=== PATIENT | female | born 1960 | race Caucasian/White ===

== ENCOUNTER 2023-03-31 10:28 | Day surgery (SDC) | payer MEDICAID, SELFPAY ==
--- NOTE | 2023-03-31 10:39 | W.ANESPRE ---
General Info Date of Service Date Performed: 03/31/23 Height: 6 ft 0.75 in Weight: 95.254 kg Body Mass Index (BMI): 27.8 Surgical Procedure: Operation Date: 03/31/23 12:10 Proposed Procedure Side Surgeon p Cataract Extraction with IOL Implant Left Cuba Humphrey MD Meds Allergies and Home Medications Allergies Allergy/AdvReac Type Severity Reaction Status Date / Time insect venom Allergy Edema Unverified 03/31/23 11:08 pollen extracts Allergy Other (See Unverified 03/31/23 11:08 Comment) tree and shrub pollen Allergy Other (See Unverified 03/31/23 11:08 Comment) tramadol AdvReac Intermediate Other (See Unverified 03/31/23 11:08 Comment) Home Medication Medication Instructions Recorded albuterol sulfate 90 mcg/actuation 2 puff inhalation Q4H PRN 03/28/23 aerosol inhaler (ProAir HFA) amlodipine 10 mg tablet 10 mg PO DAILY 03/28/23 aspirin 81 mg capsule,delayed 81 mg PO DAILY 03/28/23 release atorvastatin 40 mg tablet 40 mg PO DAILY 03/28/23 dulaglutide 0.75 mg/0.5 mL 0.75 mg subcut DIRECTED 03/28/23 subcutaneous pen injector (Trulicity) epinephrine 0.3 mg/0.3 mL 0.3 mg IM DIRECTED 03/28/23 injection, auto-injector fluticasone 250 mcg-salmeterol 50 1 inh inhalation BID 03/28/23 mcg/dose blistr powdr for inhalation (Advair Diskus) insulin glargine 100 unit/mL (3 15 unit subcut HS 03/28/23 mL) subcutaneous pen (Lantus Solostar U-100 Insulin) lisinopril 20 1 tab PO DAILY 03/28/23 mg-hydrochlorothiazide 12.5 mg tablet metformin 1,000 mg tablet 1,000 mg PO BID 03/28/23 montelukast 10 mg tablet 10 mg PO DAILY 03/28/23 trazodone 50 mg tablet 50 mg PO HS 03/28/23 PFSH Active Problems Active Problems: Problem Status Onset Code Cortical age-related cataract, left eye H25.012 Nuclear age-related cataract, left eye H25.12 Medical History Medical History (Updated 03/31/23 @ 11:07 by Allison Whipple) Asthma Common iliac aneurysm Repaired COPD (chronic obstructive pulmonary disease) Pt. denies this Depression Diabetes mellitus High cholesterol Hypertension L1 vertebral fracture shattered in fall Neuropathy Retinopathy due to secondary diabetes mellitus T10 vertebral fracture Surgical History Surgical History History of back surgery 2 rods and 8 screws in back History of hernia repair History of vascular surgery open common iliac artery aneurysm repair w/ interposition graft Hx of total knee arthroplasty Tobacco Smoking/Tobacco Use Status: Former Tobacco Use Alcohol Alcohol Intake: current Substance Use Substance use type: does not use Vital Signs and Lab Results Lab Results Blood Type / Crossmatch: No Data to Display Complete Blood Count: No Data to Display Complete Metabolic Panel: No Data to Display Liver Function Panel: No Data to Display Coagulation Panel: No Data to Display Cardiac Panel: No Data to Display Arterial Blood Gas: No Data to Display Venous Blood Gas: No Data to Display Pancreas Panel: No Data to Display Thyroid Panel: No Data to Display Infectious Disease: No Data to Display Blood Cultures: No Data to Display Toxicology Panel: No Data to Display Anesthesia Assessment and Plan Anesthesia History Personal History: No History of Anesthesia Complications Family History: No Family History of Anesthesia Complications Exercise Tolerance Exercise Tolerance: Metabolic Equivalents>4 Pertinent Negatives Pertinent Negatives: No Symptoms of GERD and No History of CVA/TIA Cardiac & Pulmonary Exam Cardiac Exam: Normal S1/S2 Heart Sounds Pulmonary Exam: Clear Bilateral Breath Sounds Implantable Cardiac Device Does patient have a Pacemaker or an ICD?: No Airway Exam Known Difficult Airway: No Mallampati Class: 2 Mouth Opening: Normal (> 3cm) Thyromental Distance: Greater than 3 cm Neck Range of Motion: Full ROM Neck Circumference: Normal Teeth Condition: Generalized Poor Dentition ASA Classification ASA Score: ASA 3 Emergency Case?: No NPO Status NPO Status: NPO Clears >2 hours, Solids >8 hours Anesthesia Plan Resuscitation Status: Full Code Anesthesia Technique: MAC Anesthesia Airway Planned: Natural Airway Monitors Used: Standard Monitors Preoperative Comments:: Sig PMHx: repaired common iliac aneurysm, potential COPD (patient denies), reports asthma, vertebral trauma from fall with internal fixation. Patient wants to try local no MKO.
[2023-03-31 11:14] VITALS: BP 119/81; PULSE 86; RESP 20; TEMP 36.4; O2SAT 98
[2023-03-31] MEDS: Tropicam./Phenyleph. (1/2.5%) 5 ML BTL OS ×3 (11:14→11:25)
[2023-03-31 11:26] VITALS: BMI 27.8
[2023-03-31] MEDS: Tetracaine 0.5% 4 ML BTL OS (11:54)
[2023-03-31] MEDS: Povidone-Iodine Ophth 30 ML BTL (11:55)
[2023-03-31] MEDS: Balanced Salt Soln.-PLUS 500 ML BAG OP (12:00)
[2023-03-31] MEDS: Duovisc Viscoelastic System EACH 1 EACH (12:00)
[2023-03-31] MEDS: Lidocaine 1% Pres-Free 5 ML VIAL (12:01)
[2023-03-31] MEDS: Phenylephrine/Lidocaine (15/10) MG/ML 1 ML VIAL (12:02)
[2023-03-31 12:20] VITALS: BP 114/91; PULSE 83; RESP 18; TEMP 36.4; O2SAT 98
--- NOTE | 2023-03-31 12:21 | W.PM.DSUDISC ---
Date of service: 03/31/23 Time of Service: 12:21 Discharge Plan Disposition Patient Disposition: Home Discharge Details Attending Provider: Cuba Humphrey Primary Care Provider: LEANA PATRICIA Home Meds and New Rx's Prescriptions: No Action atorvastatin 40 mg Tablet 40 mg PO HS fluticasone propion-salmeterol [Advair Diskus] 250-50 mcg/dose Blister With Device 1 inh INHALATION BID lisinopril-hydrochlorothiazide 20-12.5 mg Tablet 1 tab PO DAILY aspirin 81 mg Capsule,Delayed Release(Dr/Ec) 81 mg PO DAILY amlodipine 10 mg Tablet 10 mg PO DAILY metformin 1,000 mg Tablet 1,000 mg PO BID epinephrine [Epi E-Z Pen] 0.3 mg/0.3 mL Auto-Injector 0.3 mg IM DIRECTED insulin glargine [Lantus Solostar U-100 Insulin] 100 unit/mL (3 mL) Insulin Pen 15 unit SUBCUT HS trazodone 50 mg Tablet 50 mg PO HS montelukast 10 mg Tablet 10 mg PO DAILY albuterol sulfate [ProAir HFA] 90 mcg/actuation Hfa Aerosol Inhaler 2 puff INHALATION Q4H PRN Trulicity 0.75 mg/0.5 mL Pen Injector 0.75 mg SUBCUT DIRECTED Discharge Instructions Stand Alone Forms: Post-op Topical Cataract, Yakelin Sepulveda (DSU) Discharge Orders Discharge Orders: Discharge Order (Routine); Ordered 03/31/23 Ordered By: Cuba Humphrey DS: Diagnosis Discharge Diagnosis (1) Nuclear age-related cataract, left eye: Status: Resolved (2) Cortical age-related cataract, left eye: Status: Resolved
--- NOTE | 2023-03-31 12:22 | ROE_ITS ---
Date of service: 03/31/23 Time of Service: 12:22 Operative Note Operative Note DATE OF PROCEDURE: 03/31/23 PRE-OP DIAGNOSIS: Nuclear/cortical cataract, left eye POST-OP DIAGNOSIS: same PROCEDURE: Cataract extraction using phacoemulsification with intraocular lens implant, left eye SURGEON: Cuba Humphrey ANESTHESIA TYPE: Local By Surgeon and MAC Refer to Anesthesia Record PATHOLOGY: none sent COMPLICATIONS: None Patient was transported to: same day Patient's condition: stable Implants: Naveen and Naveen Tecnis Eyhance DIB00 Indications: Progressive decreased vision due to cataract, left eye Procedure Description: CATARACT SURGERY OPERATIVE REPORT PREOPERATIVE DIAGNOSIS: 1. Nuclear/cortical cataract, left eye POSTOPERATIVE DIAGNOSIS: Same OPERATION: 1. Cataract extraction using phacoemulsification with posterior chamber intraocular lens implant, left eye. IOL: IOL Certified Corporate [employer] Executive/Model: Naveen & Naveen Tecnis Eyhance DIB00 IOL Power: + 13.5 diopters IOL Serial Number: [id number] Optic Diameter: 6.0 mm Haptic/Overall Diameter: 13.0 mm PHACO INFO: JuanBapulurion Vision System with OZil and Active Fluidics Cumulative Dispersed Energy (CDE): 5.96 seconds SURGEON: Cuba Humphrey MD, RANDALL ANESTHESIA: Monitored A [facility] (MAC), with local sub-tenon's anesthetic infiltration COMPLICATIONS: None SPECIMENS: None INDICATIONS FOR PROCEDURE: The patient is a 62-year-old lady with history of diminished visual acuity in her left eye secondary to the development of significant nuclear/cortical cataract. The option of cataract surgery was offered to the patient and she felt she was symptomatic enough that she wished to proceed. See office notes for detailed information. PROCEDURE: The correct surgical eye was identified and marked as the left eye and the pupil was dilated in the preoperative area using mydriatics and cycloplegics. The dilated pupil size was 6.5 mm. The patient elected to proceed without oral sedation. The patient was brought to the operating room where cardiopulmonary monitoring was instituted and surgical time-out was performed, confirming the correct operative eye and IOL power. Topical anesthesia was administered and ophthalmic povidone-iodine 5% was instilled into the conjunctival fornices. The kiya-ocular area was prepped with Betadine 10% solution and draped in the usual sterile fashion for intraocular surgery, including an aperture drape. A Tegaderm transparent film dressing was cut in half and used to cover the lashes and lid margins. Care was taken to sequester the lashes and lid margins under the Tegaderm dressing. A lid speculum was placed between the lids of the operative eye and the Juan LuxOR Revalia operating microscope was maneuvered into position. Ozzie scissors were then used to make a conjunctival buttonhole approximately 6mm posterior to the limbus in the inferonasal quadrant. Blunt dissection was carried out to expose bare sclera, and a blunt-tipped sub-tenon?s anesthesia cannula was introduced and passed posteriorly along the globe where non- preserved plain lidocaine was injected into posterior sub-Tenon?s space. A sideport knife was used to make a paracentesis port superiorly/superior temporally. Intraocular phenylephrine/lidocaine was injected int the anterior chamber.. The anterior chamber was filled with viscoelastic. A keratome knife was used to construct a 2-plane near-clear corneal tunnel extending 2.0mm into clear cornea temporally. A flap was raised on the anterior capsule and capsulorhexis forceps were used to complete a continuous curvilinear capsulorhexis of 5.5 mm. Balanced salt solution was then used to perform cortical cleaving hydrodissection and nuclear hydrodelineation until the lens could be freely rotated within the capsular bag. The lens nucleus was then disassembled and removed within the capsular bag and iris plane using phacoemulsification. Residual cortical material was removed using the 45-degree angled silicone I/A tip with 0.3mm port. The posterior capsule was carefully polished to remove as much residual lens epithelial cells as safely possible. The capsular bag was then inflated and the anterior chamber deepened with viscoelastic. The lens implant described above was inserted into the capsular bag using the Naveen and Naveen Simplicity pre-loaded injector. . A Kuglen hook was used to dial the IOL into position. Residual viscoelastic was then removed first from posterior to the IOL, then from the anterior chamber using the I/A handpiece. The lens implant was noted to center nicely within the capsular bag. The incisions were stromally hydrated, and the anterior chamber was reformed using BSS. Then 0.5cc of moxifloxacin 1.0mg/ml were injected into the capsular bag and anterior chamber. The incisions were checked with a Weck spear and found to be secure. Several drops of ophthalmic povidone-iodine 5% were then applied to the eye followed by two drops of Imprimis combination prednisolone/moxifloxacin/nepafenac solution. The drapes were removed and a clear plastic protective eye shield was placed over the eye. The patient was then returned to Same Day Surgery in stable condition.
--- NOTE | 2023-03-31 12:41 | W.ANESPOSTOP ---
Postoperative Evaluation Date, Time and Location Date Performed: 03/31/23 Time Performed: 12:41 Patient Location: Day Surgery Unit Vital Signs Most Recent Imported Vital Signs: Most Recent Vital Signs Temp Pulse Resp BP Pulse Ox 36.4 C L 83 18 114/91 H 98 03/31/23 12:20 03/31/23 12:20 03/31/23 12:20 03/31/23 12:20 03/31/23 12:20 Pain Score Most Recent Pain Score: Most Recent Pain Score Pain Level 0 03/31/23 12:20 Assessment Mental Status: Awake (Alert & Oriented to Patient Baseline) Airway and Respiratory Function: Patent airway with normal (patient baseline) respiratory exam Cardiovascular Function: Hemodynamically Stable Hydration Status: Adequately Hydrated Nausea & Vomiting: No Nausea or Vomiting Pain: Pt. Denies Any Pain Peripheral Nerve Block: Other (Local by Dr. Humphrey)
== END 2023-03-31 12:35 | disposition home or self-care (01) ==
PROVIDERS: PCP Family Medicine; Visit Provider Ophthalmology
PROC: (CPT 66984; principal; 2023-03-31 12:00)
DX: H25.12 Age-related nuclear cataract, left eye (principal); H25.012 Cortical age-related cataract, left eye
CPT/HCPCS: 66984; V2632

== ENCOUNTER 2023-04-14 06:12 | Day surgery (SDC) | payer MEDICAID, SELFPAY ==
[2023-04-14 06:15] VITALS: BP 120/80; PULSE 70; RESP 16; TEMP 36.5; O2SAT 99
[2023-04-14] MEDS: Tropicam./Phenyleph. (1/2.5%) 5 ML BTL OD ×3 (06:37→06:52)
--- NOTE | 2023-04-14 06:51 | W.ANESPRE ---
General Info Date of Service Date Performed: 04/14/23 Height: 6 ft 0.75 in Weight: 97.3 kg Body Mass Index (BMI): 28.5 Surgical Procedure: Operation Date: 04/14/23 07:40 Proposed Procedure Side Surgeon p Cataract Extraction with IOL Implant Right Cbua Humphrey MD Meds Allergies and Home Medications Allergies Allergy/AdvReac Type Severity Reaction Status Date / Time insect venom Allergy Edema Unverified 04/14/23 06:17 pollen extracts Allergy Other (See Unverified 04/14/23 06:17 Comment) tree and shrub pollen Allergy Other (See Unverified 04/14/23 06:17 Comment) tramadol AdvReac Intermediate Other (See Unverified 04/14/23 06:17 Comment) Home Medication Medication Instructions Recorded albuterol sulfate 90 mcg/actuation 2 puff inhalation Q4H PRN 03/28/23 aerosol inhaler (ProAir HFA) amlodipine 10 mg tablet 10 mg PO DAILY 03/28/23 aspirin 81 mg capsule,delayed 81 mg PO DAILY 03/28/23 release atorvastatin 40 mg tablet 40 mg PO HS 03/28/23 dulaglutide 0.75 mg/0.5 mL 0.75 mg subcut DIRECTED 03/28/23 subcutaneous pen injector (Trulicity) epinephrine 0.3 mg/0.3 mL 0.3 mg IM DIRECTED 03/28/23 injection, auto-injector fluticasone 250 mcg-salmeterol 50 1 inh inhalation BID 03/28/23 mcg/dose blistr powdr for inhalation (Advair Diskus) insulin glargine 100 unit/mL (3 15 unit subcut HS 03/28/23 mL) subcutaneous pen (Lantus Solostar U-100 Insulin) lisinopril 20 1 tab PO DAILY 03/28/23 mg-hydrochlorothiazide 12.5 mg tablet metformin 1,000 mg tablet 1,000 mg PO BID 03/28/23 montelukast 10 mg tablet 10 mg PO DAILY 03/28/23 trazodone 50 mg tablet 50 mg PO HS 03/28/23 Current Visit Medications: Current Medications Generic Name Dose Route Start Last Admin Trade Name Freq PRN Reason Stop Dose Admin Acetaminophen 1,000 mg 04/14/23 06:00 Acetaminophen 500 Mg Tab PO 05/14/23 05:59 Q4H PRN PRN Balanced Salt Solution 500 ml 04/14/23 06:00 Balanced Salt Soln.-Plus 500 Ml Bag OP 05/14/23 05:59 DIRECTED BEKA Miscellaneous Medication 0 ml 04/14/23 06:00 Prednisolone 1%, Moxifloxacin 0.5%, Nepafenac 0.1% 5ml Btl OD 05/14/23 05:59 DIRECTED BEKA Miscellaneous Medication 0 ml 04/14/23 06:00 04/14/23 06:47 Tropicam./Phenyleph. (1/2.5%) 5 Ml Btl OD 05/14/23 05:59 1 drp DIRECTED BEKA Administration Tetracaine HCl 0 ml 04/14/23 06:00 Tetracaine 0.5% 4 Ml Btl OD 05/14/23 05:59 DIRECTED BEKA PFSH Active Problems Active Problems: Problem Status Onset Code Cortical age-related cataract, right eye H25.011 Nuclear age-related cataract, right eye H25.11 Nuclear age-related cataract, left eye H25.12 Cortical age-related cataract, left eye H25.012 Medical History Medical History Asthma Common iliac aneurysm Repaired COPD (chronic obstructive pulmonary disease) Pt. denies this Depression Diabetes mellitus High cholesterol Hypertension L1 vertebral fracture shattered in fall Neuropathy Retinopathy due to secondary diabetes mellitus T10 vertebral fracture Surgical History Surgical History History of back surgery 2 rods and 8 screws in back History of hernia repair History of vascular surgery open common iliac artery aneurysm repair w/ interposition graft Hx of total knee arthroplasty Tobacco Smoking/Tobacco Use Status: Former Tobacco Use Alcohol Alcohol Intake: current Alcohol intake frequency: holidays/special occasions only Substance Use Substance use: Never Substance use type: does not use Vital Signs and Lab Results Vital Signs Most Recent Vital Signs in EMR: Most Recent Vital Signs Temp Pulse Resp BP Pulse Ox 36.5 C 70 16 120/80 99 04/14/23 06:15 04/14/23 06:15 04/14/23 06:15 04/14/23 06:15 04/14/23 06:15 Point of Care Results Point of Care Results: Finger Stick Blood Glucose 157 04/14/23 06:45 Lab Results Blood Type / Crossmatch: No Data to Display Complete Blood Count: No Data to Display Complete Metabolic Panel: No Data to Display Liver Function Panel: No Data to Display Coagulation Panel: No Data to Display Cardiac Panel: No Data to Display Arterial Blood Gas: No Data to Display Venous Blood Gas: No Data to Display Pancreas Panel: No Data to Display Thyroid Panel: No Data to Display Infectious Disease: No Data to Display Blood Cultures: No Data to Display Toxicology Panel: No Data to Display Anesthesia Assessment and Plan Anesthesia History Personal History: No History of Anesthesia Complications Family History: No Family History of Anesthesia Complications Exercise Tolerance Exercise Tolerance: Metabolic Equivalents>4 Pertinent Negatives Pertinent Negatives: No Major Cardiovascular Symptoms or Complaints and No Major Pulmonary Symptoms or Complaints Cardiac & Pulmonary Exam Cardiac Exam: Normal S1/S2 Heart Sounds Pulmonary Exam: Clear Bilateral Breath Sounds Implantable Cardiac Device Does patient have a Pacemaker or an ICD?: No Airway Exam Known Difficult Airway: No Mallampati Class: 2 Mouth Opening: Normal (> 3cm) Thyromental Distance: Greater than 3 cm Neck Range of Motion: Full ROM Neck Circumference: Normal Teeth Condition: Generalized Poor Dentition ASA Classification ASA Score: ASA 3 Emergency Case?: No NPO Status NPO Status: NPO Clears >2 hours, Solids >8 hours Anesthesia Plan Resuscitation Status: Full Code Anesthesia Technique: MAC Anesthesia Airway Planned: Natural Airway Monitors Used: Standard Monitors
[2023-04-14 07:02] VITALS: BMI 28.5
[2023-04-14] MEDS: Povidone-Iodine Ophth 30 ML BTL (07:33)
[2023-04-14] MEDS: Tetracaine 0.5% 4 ML BTL OD (07:34)
[2023-04-14] MEDS: Balanced Salt Soln.-PLUS 500 ML BAG OP (07:40)
[2023-04-14] MEDS: Duovisc Viscoelastic System EACH 1 EACH (07:40)
[2023-04-14] MEDS: Lidocaine 1% Pres-Free 5 ML VIAL (07:41)
[2023-04-14] MEDS: Phenylephrine/Lidocaine (15/10) MG/ML 1 ML VIAL (07:41)
[2023-04-14 07:54] VITALS: BP 119/69; PULSE 66; RESP 16; TEMP 36.5; O2SAT 97
--- NOTE | 2023-04-14 07:59 | W.PM.DSUDISC ---
Date of service: 04/14/23 Time of Service: 07:59 Discharge Plan Disposition Patient Disposition: Home Discharge Details Attending Provider: Cuba Humphrey Primary Care Provider: LEANA PATRICIA Home Meds and New Rx's Prescriptions: No Action atorvastatin 40 mg Tablet 40 mg PO HS fluticasone propion-salmeterol [Advair Diskus] 250-50 mcg/dose Blister With Device 1 inh INHALATION BID lisinopril-hydrochlorothiazide 20-12.5 mg Tablet 1 tab PO DAILY aspirin 81 mg Capsule,Delayed Release(Dr/Ec) 81 mg PO DAILY amlodipine 10 mg Tablet 10 mg PO DAILY metformin 1,000 mg Tablet 1,000 mg PO BID epinephrine [Epi E-Z Pen] 0.3 mg/0.3 mL Auto-Injector 0.3 mg IM DIRECTED insulin glargine [Lantus Solostar U-100 Insulin] 100 unit/mL (3 mL) Insulin Pen 15 unit SUBCUT HS trazodone 50 mg Tablet 50 mg PO HS montelukast 10 mg Tablet 10 mg PO DAILY albuterol sulfate [ProAir HFA] 90 mcg/actuation Hfa Aerosol Inhaler 2 puff INHALATION Q4H PRN Trulicity 0.75 mg/0.5 mL Pen Injector 0.75 mg SUBCUT DIRECTED Discharge Instructions Stand Alone Forms: Post-op Topical Cataract, Yakelin Sepulveda (DSU) Discharge Orders Discharge Orders: Discharge Order (Routine); Ordered 04/14/23 Ordered By: Cuba Humphrey DS: Diagnosis Discharge Diagnosis (1) Cortical age-related cataract, right eye: Status: Resolved (2) Nuclear age-related cataract, right eye: Status: Resolved
--- NOTE | 2023-04-14 08:00 | W.PM.OP ---
Date of service: 04/14/23 Time of Service: 08:00 Operative Note Operative Note DATE OF PROCEDURE: 04/14/23 PRE-OP DIAGNOSIS: Nuclear/cortical cataract, right eye POST-OP DIAGNOSIS: same PROCEDURE: Cataract extraction using phacoemulsification with intraocular lens implant, right eye SURGEON: Cuba Humphrey ANESTHESIA TYPE: Local By Surgeon and MAC Refer to Anesthesia Record ESTIMATED BLOOD LOSS: 0 PATHOLOGY: none sent COMPLICATIONS: None Patient was transported to: same day Patient's condition: stable Implants: Naveen & Naveen Tecnis Eyhance DIB00 Indications: Progressive visual loss due to cataract, right eye Procedure Description: CATARACT SURGERY OPERATIVE REPORT PREOPERATIVE DIAGNOSIS: 1. Nuclear/cortical cataract, right eye POSTOPERATIVE DIAGNOSIS: Same OPERATION: 1. Cataract extraction using phacoemulsification with posterior chamber intraocular lens implant, right eye. IOL: IOL Security Attendant/Model: Naveen & Naveen Tecnis Eyhance DIB00 IOL Power: + 14.0 diopters IOL Serial Number: [id number] Optic Diameter: 6.0mm Haptic/Overall Diameter: 13.0mm PHACO INFO: [employer]ion Vision System with OZil and Active Fluidics Cumulative Dispersed Energy (CDE): 4.54 seconds SURGEON: Cuba Humphrey MD, RANDALL ANESTHESIA: Monitored Anesthesia Care (MAC), with local sub-tenon's anesthetic infiltration COMPLICATIONS: None SPECIMENS: None INDICATIONS FOR PROCEDURE: The patient is a 62-year-old lady with history of diminished visual acuity in her right eye secondary to the development of nuclear/cortical cataract. She has recently undergone cataract surgery in the left eye to remove a nuclear and cortical cataract there. She is doing well postoperative the left eye and now presents for cataract surgery in the right eye. PROCEDURE: The correct surgical eye was identified and marked as the right eye and the pupil was dilated in the preoperative area using mydriatics and cycloplegics. The dilated pupil size was 7.0 mm. The patient elected to proceed without oral sedation. The patient was brought to the operating room where cardiopulmonary monitoring was instituted and surgical time-out was performed, confirming the correct operative eye and IOL power. Topical anesthesia was administered and ophthalmic povidone-iodine 5% was instilled into the conjunctival fornices. The kyia-ocular area was prepped with Betadine 10% solution and draped in the usual sterile fashion for intraocular surgery, including an aperture drape. A Tegaderm transparent film dressing was cut in half and used to cover the lashes and lid margins. Care was taken to sequester the lashes and lid margins under the Tegaderm dressing. A lid speculum was placed between the lids of the operative eye and the Juan LuxOR Revalia operating microscope was maneuvered into position. Ozzie scissors were then used to make a conjunctival buttonhole approximately 6mm posterior to the limbus in the inferonasal quadrant. Blunt dissection was carried out to expose bare sclera, and a blunt-tipped sub-tenon?s anesthesia cannula was introduced and passed posteriorly along the globe where non-preserved plain lidocaine was injected into posterior sub-Tenon?s space. A sideport knife was used to make a paracentesis port. Intraocular phenylephrine/lidocaine was injected into the anterior chamber. The anterior chamber was filled with viscoelastic. A keratome knife was used to construct a 2-plane clear corneal tunnel extending 2.0mm into clear cornea. A flap was raised on the anterior capsule and capsulorhexis forceps were used to complete a continuous curvilinear capsulorhexis of 5.5 mm. Balanced salt solution was then used to perform cortical cleaving hydrodissection and nuclear hydrodelineation until the lens could be freely rotated within the capsular bag. The lens nucleus was then disassembled and removed within the capsular bag and iris plane using phacoemulsification. Residual cortical material was removed using the I/A handpiece. The posterior capsule was carefully polished to remove as much residual lens epithelial cells as safely possible. The capsular bag was then inflated and the anterior chamber deepened with cohesive viscoelastic. The lens implant described above was inserted into the capsular bag using the Naveen and Magalie Simplicity pre-loaded injector. A Kuglen hook was used to dial the IOL into position. Residual viscoelastic was then removed first from posterior to the IOL, then from the anterior chamber using the I/A handpiece. The lens implant was noted to center nicely within the capsular bag. The incisions were stromally hydrated, and the anterior chamber was reformed using BSS. Then 0.5cc of moxifloxacin 1.0mg/ml were injected into the capsular bag and anterior chamber. The incisions were checked with a Weck spear and found to be secure. Several drops of ophthalmic povidone-iodine 5% were then applied to the eye followed by two drops of Imprimis combination prednisolone/moxifloxacin/nepafenac solution. The drapes were removed and a clear plastic protective eye shield was placed over the eye. The patient was then returned to Same Day Surgery in stable condition.
--- NOTE | 2023-04-14 08:20 | W.ANESPOSTOP ---
Postoperative Evaluation Date, Time and Location Date Performed: 04/14/23 Time Performed: 08:00 Patient Location: Day Surgery Unit Vital Signs Most Recent Imported Vital Signs: Most Recent Vital Signs Temp Pulse Resp BP Pulse Ox 36.5 C 66 16 119/69 97 04/14/23 07:54 04/14/23 07:54 04/14/23 07:54 04/14/23 07:54 04/14/23 07:54 Pain Score Most Recent Pain Score: Most Recent Pain Score Pain Level 0 04/14/23 07:54 Assessment Mental Status: Awake (Alert & Oriented to Patient Baseline) Airway and Respiratory Function: Patent airway with normal (patient baseline) respiratory exam Cardiovascular Function: Hemodynamically Stable Hydration Status: Adequately Hydrated Nausea & Vomiting: No Nausea or Vomiting Pain: Pt. Denies Any Pain Peripheral Nerve Block: Patient did not receive a nerve block
== END 2023-04-14 08:11 | disposition home or self-care (01) ==
PROVIDERS: PCP Family Medicine; Visit Provider Ophthalmology
PROC: (CPT 66984; principal; 2023-04-14 07:30)
DX: H25.011 Cortical age-related cataract, right eye (principal); H25.11 Age-related nuclear cataract, right eye; I10 Essential (primary) hypertension; Z98.42 Cataract extraction status, left eye
CPT/HCPCS: 66984; V2632